=== PATIENT | female | born 1970 | race Caucasian/White ===

== ENCOUNTER 2016-11-20 21:11 | Emergency (ER) | payer BC ==
[~2016-11-20] VITALS: Ht 162.6 cm; Wt 129.5 kg
[2016-11-20 21:12] VITALS: TEMP 99
[2016-11-20] MEDS ORDERED: GLUCOPHAGE1000 MG PO (21:43)
[2016-11-20] MEDS ORDERED: LAMICTAL200 MG PO (21:43)
[2016-11-20] MEDS ORDERED: DESYREL 100MG100 MG PO (21:43)
[2016-11-20] MEDS ORDERED: LIPITOR20 MG PO (21:43)
[2016-11-20] MEDS ORDERED: 00186-0370-20 IH (21:44)
[2016-11-20] MEDS ORDERED: TRILAFON 2MG TAB2 MG PO (21:44)
[2016-11-20] MEDS ORDERED: MOBIC15 MG PO (21:44)
[2016-11-20] MEDS ORDERED: NORCO 325 MG-101 TAB PO (21:45)
[2016-11-20] MEDS ORDERED: LYRICA 100MG C100 M1 PO (21:45)
[2016-11-20] MEDS ORDERED: LINZESS290CAP PO (21:45)
[2016-11-20] MEDS ORDERED: LATUDA40 MG PO (21:46)
[2016-11-20] MEDS ORDERED: FLEXERIL 1010 MG/TAB PO (21:47)
[2016-11-20 22:04] LABS: BASO # 0.1 (0.0-0.2); BASO % 0.8 % (0.0-2.0); EOS # 0.2 (0.0-0.7); EOS % 2.9 % (0-4.0); GRAN # 3.7 (1.4-6.5); GRAN % 50.8 % (42.2-75.2); HEMATOCRIT 43.8 % (37.0-47.0); HEMOGLOBIN 14.9 g/dl (12.5-16.0); LYMPH # 2.7 (1.2-3.4); LYMPH % 37.1 % (20.0-51.0); MEAN CELL VOLUME 94 fl (80.0-100.0); MEAN CORPUSCULAR HEMOGLOBIN 32 pg (27.0-31.0); MEAN CORPUSCULAR HGB CONC 34 g/dl (33.0-37.0); MEAN PLATELET VOLUME 9.1 fl (7.4-10.4); MONO # 0.6 (0.1-0.6); MONO % 7.9 % (1.7-9.3); PLATELET COUNT 271 K/mm3 (130-400); RED BLOOD COUNT 4.65 M/mm3 (4.10-5.30); REDCELL DISTRIBUTION WIDTH-CV 13.1 % (11.5-14.5); WHITE BLOOD COUNT 7.4 K/mm3 (4.8-10.8)
[2016-11-20 22:18] LABS: ADJUSTED CALCIUM 9.1 mg/dL (8.4-10.2); ALANINE AMINOTRANSFERASE 112 U/L (9-52); ALBUMIN 4.6 gm/dL (3.5-5.0); ALKALINE PHOSPHATASE 78 U/L (50-136); ANION GAP 12 mmol/L (7-16); BILIRUBIN,TOTAL 0.6 mg/dL (0.0-1.0); BLOOD UREA NITROGEN 13 mg/dL (7-17); C-REACTIVE PROTEIN < 0.5 mg/dL (0.0-0.9); CALCIUM 9.6 mg/dL (8.4-10.2); CARBON DIOXIDE 27 mmol/L (22-30); CHLORIDE 102 mmol/L (98-107); GLUCOSE 147 mg/dL (74-106); POTASSIUM 3.9 mmol/L (3.4-5.0); SODIUM 141 mmol/L (137-145); TOTAL PROTEIN 7.4 gm/dL (6.4-8.2)
[2016-11-20 22:38] LABS: ERYTHROCYTE SEDIMENTATION RATE 8 mm/hr (0-20)
[2016-11-20 23:23] VITALS: BP 140/80; PULSE 88
== END 2016-11-20 23:23 | disposition home or self-care (01) ==
LOC: COL.ER 21:11
PROVIDERS: Emergency Medicine
DX: M25.551 Pain in right hip (principal); E66.9 Obesity, unspecified; Z68.42 Body mass index [BMI] 45.0-49.9, adult; G89.29 Other chronic pain; M54.9 Dorsalgia, unspecified
CPT/HCPCS: J1885